=== PATIENT | male | born 1935 | race Caucasian/White ===

== ENCOUNTER 2023-04-28 08:00 | Outpatient (CLI) | payer MEDICARE | END 2023-04-28 08:01 | disposition home or self-care (01) | LOC: PET 08:00 | PROVIDERS: ATTEND Internal Medicine Hematology & Oncology | DX: C91.10 Chronic lymphocytic leukemia of B-cell type not having achieved remission (principal) | CPT/HCPCS: 78815; A9552; 80053; 82248; 82728; 83540; 83550; 83615; 84100; 84550; 85025 ==